=== PATIENT | female | born 1940 | race Caucasian/White ===

== ENCOUNTER 2017-08-08 09:42 | Inpatient (IN) ==
--- NOTE | 2017-08-08 10:11 | EKG Report ---
Stationary ECG Study [facility] ER Test Date: 08/08/2017 10:09:51 AM Pat Name: TONY MOYA Department: Room: Gender: F Home Care Scheduler: : 1940 Requested by: Abhay Cheney Order Number: [id number] Reading MD: BRYCE HUMPHRIES Intervals [place] Rate: 80 P: 51 IN: 144 QRS: 17 QRSD: 129 T: 49 QT: 396 QTc: 432 Interpretive Statements SINUS RHYTHM INDETERMINATE AXIS RIGHT BUNDLE BRANCH BLOCK Electronically Signed On 08-09-17 18:28:11 CDT by BRYCE HUMPHRIES [email or web address]
--- NOTE | 2017-08-08 10:26 | CT Report ---
CT brain Indication: Syncope Comparison: None available Technique: Axial CT imaging of the brain is performed without contrast with 3 mm increments. Findings: No evidence of hemorrhage, mass mass effect midline shift or acute infarct seen. There is moderate diffuse cerebral atrophy. There are areas of decreased density seen within the white matter likely related to chronic microvascular changes. Otherwise the brain parenchyma attenuation and differentiation appears within normal limits. The ventricles and cisterns are normal in caliber. No cranial or skull base abnormality is identified. Impression: No evidence of acute infarct or acute process demonstrated. This CT exam was performed using one or more the following dose reduction techniques: Automated exposure control, adjustment of the MA and/or KV according to patient size, or use of iterative reconstruction technique. PROCEDURE INTERPRETED AT [facility] DEPARTMENT OF RADIOLOGY Final Report Signed by: Dr. Chaitanya Lemus
--- NOTE | 2017-08-08 10:48 | XRay Report ---
XR lumbar spine AP/LAT Indication: Back pain, falling injury Comparison: None available Findings: No fracture is seen. Vertebral body heights and alignment are normal. There is loss of disc space and degenerative change of mild to moderate at L2-3 and L4-5 and mild remaining levels. Moderate amount of facet joint degenerative changes are present in the lower lumbar spine. Impression: No evidence of acute injury demonstrated PROCEDURE INTERPRETED AT [facility] DEPARTMENT OF RADIOLOGY Final Report Signed by: Dr. Chaitanya Lmeus
[2017-08-08 10:59] LABS: Basophils # 0.1 10*3/uL (0.0-0.2); Basophils % 0.4 % (0.0-0.8); Eosinophils # 0.1 10*3/uL (0.0-0.87); Eosinophils % 0.3 % (0.00-10.9); Hematocrit 45.4 VOL% (35.7-47.0); Hemoglobin 15.5 GM/DL (12.0-16.0); Immature Granulocytes % 1.3 %; Immature Granulocytes Absolute 0.22 #; Lymphocytes # 1.6 10*3/uL (1.4-4.0); Lymphocytes % 9.4 % (21.3-54.2); Mean Corpuscular HGB Conc 34.1 GM/DL (32-36); Mean Corpuscular Hemoglobin 31 PG (27-34); Mean Corpuscular Volume 90.1 FL (87-102); Mean Platelet Volume 10.4 FL (9.6-12.0); Monocytes % 5.6 % (1.7-12.7); Platelet Count 235 T/CUMM (130-400); Red Blood Count 5.04 MC/CUMM (3.8-5.5); Red Cell Distribution Width 13.9 % (9.3-17.3); White Blood Count 16.8 T/CUMM (4-12)
[2017-08-08 11:27] LABS: Albumin 3.5 G/DL (3.4-5.0); Bilirubin,Total 0.6 MG/DL (0.2-1.0); Calcium 9.6 MG/DL (8.5-10.1); Osmolality,Calculated 283.4 MOS/KG (273-304); Potassium 4.3 MMOL/L (3.5-5.1); Troponin I Only 0.031 NG/ML (0.00-0.045)
[2017-08-08 11:31] LABS: Apearance,Urine Slightly Hazy (Clear); Bacteria,Urine Many /HPF (Few); Bilirubin,Urine Negative (Negative); Blood, Urine Moderate mg/dL (Negative); Glucose,Urine (UA) Negative (Negative); Hyaline Casts,Urine 2 /LPF (0-3); Ketones,Urine 5 mg/dL (Negative); Mucus,Urine Occasional /LPF (Occasional); Nitrite,Urine Positive (Negative); Protein,Urine 30 MG/DL; RBC,Urine 25 /HPF (0-4); Urine Color Yellow (Yellow); Urine Specific Gravity 1.016 (1.001-1.035); Urine Urobilinogen < 2.0 EU/DL (0.2-1.0); WBC,Urine 41 /HPF (0-6)
[2017-08-08 11:33] LABS: Free T4 (Free Thyroxine) 1.25 NG/DL (0.76-1.46); Thyroid Stimulating Hormone 1.47 uIU/ml (0.358-3.74)
--- NOTE | 2017-08-08 12:42 | CT Report ---
CT chest pulmonary embolism Indication: Syncope Comparison: None available Technique: Axial CT imaging of the chest is performed with intravenous contrast. Contrast dose is 80 cc of Omnipaque 350. Findings: No thrombus or other abnormality is identified in the pulmonary arteries or veins. The pulmonary vessel caliber is within normal limits. There is small amount of aorta and coronary artery calcification. There is large amount of calcification in the mitral valve heart, mediastinum and great vessels appear within normal limits. Lung parenchyma shows no evidence of airspace disease or abnormal density. No effusion or pneumothorax is present. Gallbladder is been removed. Impression: No evidence of pulmonary thromboembolism or other acute process demonstrated. This CT exam was performed using one or more the following dose reduction techniques: Automated exposure control, adjustment of the MA and/or KV according to patient size, or use of iterative reconstruction technique. PROCEDURE INTERPRETED AT [facility] DEPARTMENT OF RADIOLOGY Final Report Signed by: Dr. Chaitanya Lemus
[2017-08-08] MEDS ORDERED: ACETAMINOPHEN 325 MG TABLET PO ONE (13:18)
[2017-08-08] MEDS ORDERED: ACETAMINOPHEN 325 MG TABLET ONE (13:19)
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
[2017-08-08] MEDS ORDERED: ONDANSETRON 4 MG/2 ML VIAL IV STA (14:04)
[2017-08-08] MEDS ORDERED: ONDANSETRON 4 MG/2 ML VIAL ONE (14:05)
[2017-08-08] MEDS ORDERED: ceFAZolin 1,000 MG VIAL ONE ×2 (14:44→15:19)
[2017-08-08] MEDS ORDERED: LIDOCAINE 1% 20 ML VIAL ONE ×2 (14:44→14:45)
[2017-08-08] MEDS ORDERED: HEPARIN/NACL 0.9% 2 UNITS/ML 500 ML IV ONE (14:44)
[2017-08-08] MEDS ORDERED: MIDAZOLAM 2 MG/2 ML VIAL ONE ×4 (14:46→16:18)
[2017-08-08] MEDS ORDERED: fentaNYL 100 MCG/2 ML VIAL ONE (14:47)
--- NOTE | 2017-08-08 14:54 | Event Note ---
After completion of the exam and generation of the orders the patient while under observation in the emergency room demonstrated high-grade AV block with substantial ventricular pause. Cardiology is aware
[2017-08-08] MEDS ORDERED: ENOXAPARIN 40 MG/0.4 ML SYRINGE SUBCUT SCH (15:00)
[2017-08-08] MEDS ORDERED: DIAZEPAM 5 MG TABLET PO ONE (15:10)
[2017-08-08] MEDS ORDERED: diphenhydrAMINE CAP 25 MG CAPSULE PO ONE (15:10)
[2017-08-08] MEDS ORDERED: ceFAZolin 1,000 MG VIAL IRRIG ONE (15:10)
--- NOTE | 2017-08-08 15:19 | Cardiology Consult Note ---
Albaro Pope Vanessa, RN, am scribing for, and in the presence of, Cindy Rodríguez DO 15 :17. Assessment and Plan - Time spent with patient Time spent with patient: Greater than 30 minutes (Date of assessment, planning, documentation, medication review) (1) Complete AV block Status: Acute Assessment and plan: While in ER being evaluated for recurrent syncope, quality assurance monitor final capture 6- 7 second episode of third-degree block before returning to sinus rhythm. With this, she experiences dizziness, lightheadedness, syncope, and is having frequent falls. She will be taken for dual-chamber pacemaker implant this afternoon. Given her increasing frequency of falls I do not think we should wait for her urine to clear. She has escalating frequency of syncope over the last 5-1/2 weeks. Current Visit: Yes (2) Syncope and collapse Status: Acute Assessment and plan: Episodes of syncope and collapse over the past 5 weeks which are becoming more frequent in the last week or so. This is most likely related to complete heart block. Current Visit: Yes (3) Thyroid disorder Status: Chronic Assessment and plan: TSH 1.470. Free T4 1.25. Continue thyroid supplement. 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 Current Visit: Yes (4) UTI (urinary tract infection) Status: Acute Assessment and plan: She has leukocytosis she is afebrile and has an abnormal urine with leukocyte esterase positive. Will cover for gram-negative rods and broad-spectrum antibiotics in addition to routine antibiotics for the procedure. Current Visit: Yes History of Present Illness - Data of Consult Patient: new to practice (Has an appt scheduled with Dr. Ramon on 08/13 for eval of syncope) Consult date: 08/08/17 Requesting Physician: Grant Hammond - Consult Narrative Reason for consult: Complete AV block History of present illness: SQUILGEER: DR. RAMON Patient is being seen and examined in ER #[id number]. Ms. Jason, 77-year-old WF, PMHx thyroid disorder, GERD, and anxiety. She is a lifetime non-smoker. Positive family history for father who after AL in his 70s denies past history of CAD, hypertension, or significant medical history. She has never had formal cardiac evaluation, but she has an appointment to see Dr. Ramon on Friday, August 13, for evaluation due to recent syncopal episodes. Presented to [facility] earlier this morning with complaints of frequent recurrent syncopal episodes over the past 5 weeks. These episodes happen while at rest and while ambulating. Over the past week, she reports that they have increased in frequency. This morning at home, she was walking out of her kitchen, had sudden onset of lightheadedness and dizziness and syncope, causing a fall. No trauma to head, but she did report headache. No chest pain, dyspnea associated with this. No exertional anginal complaint. CT of the head without acute process. Elevated d-dimer 17.2. Chest CT per PE protocol negative for evidence of PE. Prior to transfer to telemetry for further observation and treatment of syncope, patient was observed to have a 6-7 second episode of third degree AV block before returning to sinus rhythm with pulse 80s. Complete block did reproduce symptoms-- dizziness, lightheadedness, presyncope. BP 150/70. Lab work reveals elevated WBC 16,800 with UA positive for nitrate and moderate leukocytosis. Ideally we would treat the patient with antibiotics for a few days and have clearance of her urinary tract infection however she has had syncope now that is escalating in frequency over the last 5-1/2 weeks. May have even occurred at rest. I think given the severity of her symptoms and the potential life-threatening etiology of these falls we should proceed. I will give her antibiotics to cover gram negatives in addition to the routine antibiotics and the chapin- procedure time. Patient will be taken to cardiac petroleum refinery laborer today for pacemaker implantation. Procedure, risks, benefits, alternatives have been discussed with patient. Also discussed with the patient's sister who is a nurse and her daughter in the waiting area. Questions answered and all understand the significance of the tracings that I showed them. Patient and family willing to proceed. We specifically discussed the risk of infection in this setting. She does not have fever and she has not had chills hopefully this is a simple uncomplicated urinary tract infection. CC: Grant Hammond MD - Home Medications and Allergies Home Medications: Home Medications Medication Instructions Recorded Confirmed Type Buspirone HCl 15 mg PO BID 08/08/17 08/08/17 History Levothyroxine Tab [Synthroid Tab] 137 mcg PO DAILY@0700 08/08/17 08/08/17 History Pantoprazole Tab [Protonix Tab] 40 mg PO BEDTIME 08/08/17 08/08/17 History Allergies/Adverse Reactions: Allergies Allergy/AdvReac Type Severity Reaction Status Date / Time No Known Allergies Allergy Verified 08/08/17 10:21 - Constitutional Constitutional: Present: frequent falls, weakness. Absent: anorexia, chills, fever(s), increased appetite, weight gain, weight loss - EENT Eyes: Absent: blurry vision, loss of vision Ears: Absent: decreased hearing Nose, mouth and throat: Absent: dysphagia, epistaxis, nasal congestion, neck pain, sinus pressure - Cardiovascular Cardiovascular: Present: dyspnea on exertion, lightheadedness. Absent: chest pain at rest, chest pain with activity, dyspnea, edema, radiating jaw, neck or arm pain, orthopnea, palpitations, PND - Respiratory Respiratory: Present: dyspnea on exertion. Absent: cough, dyspnea, change in phlegm color - Gastrointestinal Gastrointestinal: Absent: abdominal pain, bloating, constipation, diarrhea, early satiety, heartburn, melena, nausea, vomiting, jaundice - Genitourinary Genitourinary: Present: other (She denies any genitourinary complaints). Absent : dysuria, flank pain, hematuria - Musculoskeletal Musculoskeletal: Absent: arthralgias - Neurological Neurological: Present: abnormal gait, frequent falls, syncope. Absent: abnormal speech, confusion, tremor(s) - Psychiatric Psychiatric: Present: anxiety. Absent: confusion, depression - Endocrine Endocrine: Absent: cold intolerance, heat intolerance - Hematologic/Lymphatic Hematologic/Lymphatic: Absent: easy bleeding, easy bruising Medical,Surgical,& Family Hx - Medical History Cardio: History of: Cardiac Dysrhythmia (She occasionally notices her heart fluttering and has a pending cardiac off) No history of: CHF, CAD, Hypertension, AL Psychological: History of: Anxiety Disorders Endocrine: History of: Thyroid Disorder (Chronic stable thyroid replacement) No history of: Diabetes Mellitus (IDDM), Diabetes Mellitus (NIDDM), Dyslipidemia Respiratory: No history of: Bronchitis, COPD, Obstructive Sleep Apnea, Pulmonary Hypertension Genitourinary: No history of: Kidney Stones, Problems Gastrointestinal: History of: GERD No history of: Gastrointestinal Bleed, Hepatitis Musculoskeletal: History of: Musculoskeletal Problems (She is largely confined to a mobile scooter system) Hematology: No history of: Anemia, Blood Transfusion Reaction Other: No history of: Cancer, HIV - Surgical History Cardiac Surgeries: Patient Denies: Femoral-Popliteal Bypass Graft, Cardiac Catheterization Abdominal Surgeries: Surgical HX of: Cholecystectomy Reproductive Surgeries: Surgical HX of;: Hysterectomy - Family History Family History: Reports;: Family Heart Disease (AL father) - Social History Smoking Status: Never smoker Frequency of Alcohol Use: None Type of Drug Use: None Physical Examination Vital Signs Temp Pulse Resp BP Pulse Ox 96.5 F L 79 13 146/93 98 08/08/17 09:48 08/08/17 09:48 08/08/17 09:48 08/08/17 09:48 08/08/17 09:48 General: Present: No Apparent Distress, Other (Morbidly obese) HEENT: Present: PERRL, Normocephaly, Mucus Membranes Moist. Absent: Pallor, Oral Lesions Neck: Present: Supple Neck, Midline Trachea, No JVD/HJR, No Bruit Cardiac: Present: Reg Rate and Rhythm, S1/S2, Systolic Murmur (Aortic sclerosis , she also has a murmur of tricuspid regurgitation) Lungs: Present: Normal Exam, Clear Ascult./Percussion, No Wheeze, Rales, Rhonchi. Absent: Oxygen Neuro: Present: Grossly Intact. Absent: Tingling, Weakness, Resting Tremor Abdomen: Present: Soft, Active Bowel Sounds, No Masses, No Pulsations/Bruits, Other (Obese). Absent: Ascites, Tender, Firm, Distended Skin: Present: Clear, Other (Cool, dry). Absent: Rash, Suspicious Lesions Musculoskeletal: Present: No Fluid Collection Extremities: Present: No Clubbing, No Cyanosis, No Edema, Normal Upper Extr. Pulses (3+ bilaterally), Normal Lower Extr. Pulses (3+ bilateral), Capillary Refill (Normal). Absent: Petechiae Result/EKG - Labs CBC & BMP: 08/08/17 10:04 08/08/17 10:04 Lab Results: I have reviewed the past 24 hour labs Labs: Laboratory Results - last 24 hr 08/08/17 08/08/17 08/08/17 10:04 10:04 10:04 WBC 16.8 H RBC 5.04 Hgb 15.5 Hct 45.4 MCV 90.1 MCH 31 MCHC 34.1 RDW 13.9 Plt Count 235 MPV 10.4 Neut % (Auto) 83.0 H Lymph % (Auto) 9.4 L [place] % (Auto) 5.6 Eos % (Auto) 0.3 Baso % (Auto) 0.4 Neut # (Auto) 14.0 H Lymph # (Auto) 1.6 [place] # (Auto) 1.0 H Eos # (Auto) 0.1 Baso # (Auto) 0.1 Immature Gran % 1.3 Nucleated RBC % 0.0 Immature Gran # 0.22 Nucleated RBCs # 0.00 Immature Plt Fraction 0.0 D-Dimer, Quantitative Sodium 140 Potassium 4.3 Chloride 106 Carbon Dioxide 28 Anion Gap 10.3 BUN 14 Creatinine 0.80 GFR Calculation 94 BUN/Creatinine Ratio 17.00 Glucose 169 H Calculated Osmolality 283.4 Calcium 9.6 Total Bilirubin 0.60 AST 40 H ALT 36 Alkaline Phosphatase 137 H Troponin I 0.031 B-Natriuretic Peptide 43 Total Protein 7.0 Albumin 3.5 Globulin 3.5 Albumin/Globulin Ratio 1.0 L Free T4 TSH 3rd Generation Urine Color Urine Appearance Urine pH Ur Specific [place] Urine Protein Urine Glucose (UA) Urine Ketones Urine Blood Urine Nitrate Urine Bilirubin Urine Urobilinogen Urine Leukocytes Urine RBC Urine WBC Urine WBC Clumps Urine Bacteria Hyaline Casts Urine Mucus Ur Culture Indicated? 08/08/17 08/08/17 08/08/17 10:04 10:04 11:09 WBC RBC Hgb Hct MCV MCH MCHC RDW Plt Count MPV Neut % (Auto) Lymph % (Auto) [place] % (Auto) Eos % (Auto) Baso % (Auto) Neut # (Auto) Lymph # (Auto) [place] # (Auto) Eos # (Auto) Baso # (Auto) Immature Gran % Nucleated RBC % Immature Gran # Nucleated RBCs # Immature Plt Fraction D-Dimer, Quantitative 17.2 Sodium Potassium Chloride Carbon Dioxide Anion Gap BUN Creatinine GFR Calculation BUN/Creatinine Ratio Glucose Calculated Osmolality Calcium Total Bilirubin AST ALT Alkaline Phosphatase Troponin I B-Natriuretic Peptide Total Protein Albumin Globulin Albumin/Globulin Ratio Free T4 1.25 TSH 3rd Generation 1.470 Urine Color Yellow Urine Appearance Slightly hazy Urine pH 5.0 Ur Specific [place] 1.016 Urine Protein 30 Urine Glucose (UA) Negative Urine Ketones 5 Urine Blood Moderate Urine Nitrate Positive H Urine Bilirubin Negative Urine Urobilinogen < 2.0 H Urine Leukocytes Moderate H Urine RBC 25 Urine WBC 41 Urine WBC Clumps Few Urine Bacteria Many Hyaline Casts 2 Urine Mucus Occasional Ur Culture Indicated? Results to follow - Diagnostic Findings Procedure: CT - chest: image reviewed by me, report reviewed by me, CT: image reviewed by me, report reviewed by me - EKG EKG results: interpreted by me, no acute changes EKG shows: sinus rhythm (With transient third-degree AVB -strips are in the chart) Anne Pope Shea, DO, personally performed the services described in this documentation, ascribed by Cyndy Irvin RN in my presence, and it is both accurate and complete [id number] .
--- NOTE | 2017-08-08 15:28 | History and Physical Update ---
Sedation H&P Update - History and Physical H&P was reviewed, the patient examined and there: are no changes in the patients condition since last H&P was completed. - Dictation Physical: refer to scanned H&P - Physical Exam Mental Status: alert and oriented Heart: regular rate and rhythm Lung: clear to auscultation Abdomen: within normal limits Vitals: within normal limits - Sedation Plan for Sedation: moderate Patient Consent: Procedure disscussed with patient and patinet has consented., Risks and benefits were discussed with patient,including infection,, bleeding, injury to surrounding structures, seizure, temporary nerve, Patient understands and accepts potential risks/benefits and agrees to, proceed. ASA Class: II Airway Assessment: Class III: Soft palate, base of uvula visible
[2017-08-08] MEDS ORDERED: LEVOFLOXACIN INJ 500 MG in PREMIX 1 EACH IV ONE (15:30)
[2017-08-08] MEDS ORDERED: SODIUM CHLORIDE 0.9% 1,000 ML IV SCH (15:30)
[2017-08-08] MEDS ORDERED: TISSUE ADHESIVE 1 EACH APPLICATOR TOP ONE (15:44)
--- NOTE | 2017-08-08 17:09 | Cardiology Operative Report ---
Date of Procedure:: 08/08/17 Pre-op diagnosis: Complete heart block of nonreversible calls and syncope Post-op diagnosis: same Procedure: After signed informed consent was taken from the patient and antibiotics given timeout recorded in the patient was prepped and draped in a: 1% lidocaine was infiltrated in the skin and subcutaneous tissue overlying the left subclavian vein. A venogram was performed. Seldinger technique was utilized with a micropuncture needle to obtain access to the left subclavian vein. The micropuncture wire then through the micropuncture sheath was upsized to an 035 J -wire. Additional lidocaine was given and a #11 blade was used to make the pocket. Electrocautery was used for hemostasis and dissection to the pectoralis fascial. Once the pectoralis fascial was reached blunt dissection inferiorly was used to make a pocket. Anabolic sponge was placed in the pocket. At this time blunt dissection superiorly to pull the 035 J-wire back into the pocket was performed. Now a second access more laterally was obtained with Seldinger technique from the pocket utilizing the micropuncture wire sheath and 035 J-wire as described above. At this time a 7 Greenlandic peel-away sheath was placed over the more medial wire and the ventricular lead was advanced through this sheath into the apex of the right ventricle and actively fixed. The lead was interrogated and tested for 10 V output to ensure no diaphragmatic stimulation. Slack was good and the sheath was peeled away. At this time an 2-0 Ethibond was used to secure the lead to the pectoralis fascial over the anchor sleeve. The stylette was removed and slight was demonstrated to be good. At this time attention was turned to the atrial lead. A 7 Greenlandic sheath was placed over the remaining 035 J-wire and the atrial lead was advanced into the inferior vena cava straight stylet was exchanged for a J stylette and the right reach with a J stylette it was actively fixed the stylette was removed. The lead was connected for interrogation. Numbers were all acceptable there was no diaphragmatic stimulation with 10 V. Sheath was peeled away the lead was then sewn to the pectoralis fascial over the suture sleeve in the same fashion. Finally a pursestring suture was placed around both leads. There was a bleeder deep in the pocket and a 2-0 absorbable suture was used to ligate this bleeder successfully. The anabolic sponge that had been previously placed in the pocket was removed. The rocket was flushed with antibiotics solution ensure hemostasis. The ventricular and atrial leads were then attached to the generator device as the serial numbers were called to the [employer] employment representative. Sponge and instrument count were demonstrated to be correct. AV sequential pacing was noted on the monitor the and at the device was placed in the pocket and sewn to the pectoralis fascial with 2-0 Ethibond. The sponge and instrument count were again verified to be correct the deep tissue layers were closed with 3-0 Vicryl followed by running 4-0 Vicryl in a subcuticular stitch. Dermabond was applied followed by a row of Steri-Strips and Mepilex dressing. The patient awakened from conscious sedation administered during the case without difficulty. Total IV conscious sedation: See the cath log. Implants: Device: MedOctamer advise MRI IPG [id number] Right Atrial lead: [employer]onic 5076-52 Serial number [id number] Impedance: 713 ohms P waves: 5.7 mV Threshold: 1.6 V Right Ventricular lead: [employer] 5076-58 Serial number [id number] Impedance 1071 ohms R waves 10.6 mV Threshold: 0.7 V Anesthesia: moderate conscious sedation Surgeon / Physician: Cindy Rodríguez Caustic Loader: none Estimated blood loss: none Specimens: none sent Condition: stable Disposition: floor
[2017-08-08] MEDS: busPIRone 15 MG TABLET PO SCH ×2 (17:53→20:35)
[2017-08-08] MEDS: ACETAMINOPHEN 325 MG TABLET PO PRN (18:34)
--- NOTE | 2017-08-08 19:16 | XRay Report ---
History is pacemaker placements The heart is mildly enlarged. Pacemaker is present No pneumothorax seen No consolidative infiltrate seen. Deeth shadows overlie the right apex Increased density of the left chest likely due to rotation and overlying soft tissues Impression: Mild cardiomegaly PROCEDURE INTERPRETED AT [facility] DEPARTMENT OF RADIOLOGY Final Report Signed by: Dr. Soheila Vergara
[2017-08-08] MEDS: PANTOPRAZOLE 40 MG TABLET PO SCH (20:35)
[2017-08-09 04:57] LABS: Basophils # 0.1 10*3/uL (0.0-0.2); Basophils % 0.5 % (0.0-0.8); Eosinophils # 0.1 10*3/uL (0.0-0.87); Eosinophils % 0.9 % (0.00-10.9); Hematocrit 41.3 VOL% (35.7-47.0); Immature Granulocytes % 0.9 %; Lymphocytes # 1.9 10*3/uL (1.4-4.0); Lymphocytes % 17.7 % (21.3-54.2); Mean Corpuscular HGB Conc 33.9 GM/DL (32-36); Mean Corpuscular Hemoglobin 31 PG (27-34); Mean Corpuscular Volume 90.8 FL (87-102); Mean Platelet Volume 10.9 FL (9.6-12.0); Monocytes # 0.9 10*3/uL (0.11-0.8); Monocytes % 8.8 % (1.7-12.7); Neutrophils # 7.5 10*3/uL (1.4-7.4); Neutrophils % 71.2 % (38.7-73.9); Platelet Count 210 T/CUMM (130-400); Red Blood Count 4.55 MC/CUMM (3.8-5.5); White Blood Count 10.6 T/CUMM (4-12)
[2017-08-09] MEDS: ACETAMINOPHEN 325 MG TABLET PO PRN ×2 (05:16→13:54)
[2017-08-09 05:26] LABS: Calcium 9.7 MG/DL (8.5-10.1); Osmolality,Calculated 280.5 MOS/KG (273-304); Potassium 4.4 MMOL/L (3.5-5.1)
--- NOTE | 2017-08-09 08:18 | EKG Report ---
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
[2017-08-09] MEDS: ONDANSETRON 4 MG/2 ML VIAL IV PRN ×2 (08:46→19:21)
[2017-08-09] MEDS: LEVOTHYROXINE 137 MCG TABLET PO SCH (08:50)
[2017-08-09] MEDS: LEVOFLOXACIN 500 MG TABLET PO SCH (08:51)
[2017-08-09] MEDS: busPIRone 15 MG TABLET PO SCH ×2 (08:51→20:54)
--- NOTE | 2017-08-09 10:40 | XRay Report ---
Chest, 2 views History is pacemaker placement Comparison 08/08/2017 The heart is mildly enlarged with pacemaker present. No pneumothorax seen Lung markings unchanged without consolidation. Impression: No interval change PROCEDURE INTERPRETED AT [facility] DEPARTMENT OF RADIOLOGY Final Report Signed by: Dr. Soheila Vergara
--- NOTE | 2017-08-09 11:31 | Hospitalist Progress Note ---
Assessment and Plan (1) Complete AV block Status: Acute Assessment and plan: Status post pacemaker implantation in stable rhythm. Current Visit: Yes (2) UTI (urinary tract infection) Status: Acute Assessment and plan: Continue IV antibiotic. Current Visit: Yes Qualifiers: Urinary tract infection type: acute cystitis Hospitalist: Subjective Interval history: Mrs. Jason was admitted to the hospital after a spell at home. The patient had syncope and fell. The patient complains of some right sided soreness and weakness following the spell. The patient was found to have arrhythmia and pacemaker was implanted. The patient has had no further spells since pacemaker implantation. Exam - Constitutional Vitals: Period Temp Pulse Resp BP Sys/Kiran Pulse Ox Last 24 Hr 96.7 F-98 F 72-88 16-22 150-228/69-111 92-100 Exam: Constitutional System: Mild distress. No tremulousness. Sitting up in chair without any angina or shortness of breath Head: Normocephalic, atraumatic. Ears, Nose and Throat System: No evidence of Otitis or Mastoiditis. No epistaxis or discharge Eyes System: Pupils equal, round, and reactive. Extraocular muscles intact. Neck: Supple, without adenopathy, No jugular venous distention. No thyromegaly , neck mass, or prior surgery apparent. Respiratory System: Chest clear to auscultation. Cardiovascular System: Heart with regular rate and rhythm. No murmur. Fresh dressing in place on the pacemaker site GI System: Abdomen soft, nontender. Normo active bowel sounds present. Results - Labs CBC & BMP: 08/09/17 04:16 08/09/17 04:16 Lab Results: I have reviewed the past 24 hour labs Quality Measures - VTE Contraindication to Pharmacological VTE Prophylaxis: High Risk of Bleeding
--- NOTE | 2017-08-09 11:39 | Cardiology Progress Note ---
Assessment and Plan (1) Complete AV block Status: Acute Assessment and plan: Status post dual-chamber pacemaker placement successfully. Continue shoulder immobilizer. Current Visit: Yes (2) Thyroid disorder Status: Chronic Assessment and plan: TSH 1.470. Free T4 1.25. Continue thyroid supplement. 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 Current Visit: Yes (3) UTI (urinary tract infection) Status: Acute Assessment and plan: She has leukocytosis has improved. She has been afebrile. No dysuria. I would continue antibiotics until an organism is identified. Current Visit: Yes Qualifiers: Urinary tract infection type: acute cystitis Cardiology - PN: Subj Interval history: Ms. Jason complains of pain in her low back and buttocks today after her fall yesterday. Her pacemaker interrogation was excellent this morning her chest x- ray shows no complications. She is wearing her arm sling. She states that she wishes to go to swing bed so that she can get ambulatory again. Exam (Progress Note) - Constitutional Vitals: Period Temp Pulse Resp BP Sys/Kiran Pulse Ox Last 24 Hr 96.7 F-98 F 72-88 16-22 150-228/69-111 92-98 General appearance: morbidly obese - Eye Eye exam: Present: EOMI Pupils: Present: JUJU - Neck Neck exam: Present: normal inspection - Respiratory Respiratory exam: Present: clear to auscultation bilaterally - Cardiovascular Cardiovascular exam: Present: regular rate and rhythm - GI/Abdominal GI/Abdominal exam: Present: normal bowel sounds - Neurological Exam Neurological exam: Present: alert, oriented X3 - Skin Skin exam: Present: normal color, warm Result/EKG - Labs CBC & BMP: 08/09/17 04:16 08/09/17 04:16 Labs: Laboratory Results - last 24 hr 08/08/17 08/08/17 08/09/17 10:04 15:00 04:16 WBC 10.6 D RBC 4.55 Hgb 14.0 Hct 41.3 MCV 90.8 MCH 31 MCHC 33.9 RDW 14.0 Plt Count 210 MPV 10.9 Neut % (Auto) 71.2 Lymph % (Auto) 17.7 L [place] % (Auto) 8.8 Eos % (Auto) 0.9 Baso % (Auto) 0.5 Neut # (Auto) 7.5 H Lymph # (Auto) 1.9 [place] # (Auto) 0.9 H Eos # (Auto) 0.1 Baso # (Auto) 0.1 Immature Gran % 0.9 Nucleated RBC % 0.0 Immature Gran # 0.10 Nucleated RBCs # 0.00 Immature Plt Fraction 0.0 Sodium Potassium Chloride Carbon Dioxide Anion Gap BUN Creatinine GFR Calculation BUN/Creatinine Ratio Glucose POC Glucose 147 H Calculated Osmolality Calcium B-Natriuretic Peptide 43 08/09/17 04:16 WBC RBC Hgb Hct MCV MCH MCHC RDW Plt Count MPV Neut % (Auto) Lymph % (Auto) [place] % (Auto) Eos % (Auto) Baso % (Auto) Neut # (Auto) Lymph # (Auto) [place] # (Auto) Eos # (Auto) Baso # (Auto) Immature Gran % Nucleated RBC % Immature Gran # Nucleated RBCs # Immature Plt Fraction Sodium 139 Potassium 4.4 Chloride 105 Carbon Dioxide 29 Anion Gap 9.4 BUN 12 Creatinine 0.70 GFR Calculation 112 BUN/Creatinine Ratio 17.00 Glucose 173 H POC Glucose Calculated Osmolality 280.5 Calcium 9.7 B-Natriuretic Peptide - EKG EKG results: interpreted by me, WNL Quality Measures - VTE Contraindication to Pharmacological VTE Prophylaxis: High Risk of Bleeding
[2017-08-09] MEDS: PANTOPRAZOLE 40 MG TABLET PO SCH (20:55)
[2017-08-10 04:30] LABS: Basophils # 0.1 10*3/uL (0.0-0.2); Basophils % 0.5 % (0.0-0.8); Eosinophils # 0.1 10*3/uL (0.0-0.87); Eosinophils % 1.2 % (0.00-10.9); Hematocrit 41.2 VOL% (35.7-47.0); Hemoglobin 14.1 GM/DL (12.0-16.0); Immature Granulocytes % 1.3 %; Immature Granulocytes Absolute 0.14 #; Lymphocytes % 18.8 % (21.3-54.2); Mean Corpuscular HGB Conc 34.2 GM/DL (32-36); Mean Corpuscular Hemoglobin 31 PG (27-34); Mean Corpuscular Volume 89.8 FL (87-102); Monocytes # 0.9 10*3/uL (0.11-0.8); Monocytes % 8.1 % (1.7-12.7); Neutrophils # 7.3 10*3/uL (1.4-7.4); Neutrophils % 70.1 % (38.7-73.9); Platelet Count 200 T/CUMM (130-400); Red Blood Count 4.59 MC/CUMM (3.8-5.5); White Blood Count 10.5 T/CUMM (4-12)
[2017-08-10 05:04] LABS: Magnesium 1.7 MG/DL (1.8-2.4); Osmolality,Calculated 277.7 MOS/KG (273-304); Potassium 4.5 MMOL/L (3.5-5.1)
[2017-08-10] MEDS: LEVOTHYROXINE 137 MCG TABLET PO SCH (06:56)
--- NOTE | 2017-08-10 07:43 | Cardiology Progress Note ---
Assessment and Plan (1) Complete AV block Status: Acute Assessment and plan: Status post dual-chamber pacemaker placement successfully. Continue shoulder immobilizer. Current Visit: Yes (2) Thyroid disorder Status: Chronic Assessment and plan: TSH 1.470. Free T4 1.25. Continue thyroid supplement. 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 Current Visit: Yes (3) UTI (urinary tract infection) Status: Acute Assessment and plan: She has leukocytosis has improved. She has been afebrile. No dysuria. I would continue antibiotics until an organism is identified. Appears to be gram negative rods and I suspect this is most likely E. Coli. Recheck UA tomorrow to see if it has cleared. Current Visit: Yes Qualifiers: Urinary tract infection type: acute cystitis (4) Hypertension Status: Acute Current Visit: Yes Qualifiers: Hypertension type: essential hypertension Qualified Code(s): I10 - Essential (primary) hypertension Cardiology - PN: Subj Interval history: The patient still complains of nausea whenever she gets up to get around. She also complains of buttock pain. She states that she has felt several times like she is going to have another one of those spells but has not had any spells. I reviewed her telemetry I do not see any episodes of pacing. Anticipate transfer to swing bed at some point. Her blood pressure has been elevated and I will increase her medications to treat her hypertension. Her systolic blood pressures consistently been greater than 160. Exam (Progress Note) - Constitutional Vitals: Period Temp Pulse Resp BP Sys/Kiran Pulse Ox Last 24 Hr 97 F-98.7 F 72-92 18-20 161-182/71-128 94-96 General appearance: morbidly obese - Head Head exam: Present: normal inspection - Eye Eye exam: Present: EOMI Pupils: Present: JUJU - ENT ENT exam: Present: normal exam - Respiratory Respiratory exam: Present: clear to auscultation bilaterally - Cardiovascular Cardiovascular exam: Present: regular rate and rhythm - GI/Abdominal GI/Abdominal exam: Present: normal bowel sounds Result/EKG - Labs CBC & BMP: 08/10/17 03:25 08/10/17 03:25 Labs: Laboratory Results - last 24 hr 08/10/17 08/10/17 03:25 03:25 WBC 10.5 RBC 4.59 Hgb 14.1 Hct 41.2 MCV 89.8 MCH 31 MCHC 34.2 RDW 14.0 Plt Count 200 MPV 11.0 Neut % (Auto) 70.1 Lymph % (Auto) 18.8 L [place] % (Auto) 8.1 Eos % (Auto) 1.2 Baso % (Auto) 0.5 Neut # (Auto) 7.3 Lymph # (Auto) 2.0 [place] # (Auto) 0.9 H Eos # (Auto) 0.1 Baso # (Auto) 0.1 Immature Gran % 1.3 Nucleated RBC % 0.0 Immature Gran # 0.14 Nucleated RBCs # 0.00 Immature Plt Fraction 0.0 Sodium 138 Potassium 4.5 Chloride 103 Carbon Dioxide 29 Anion Gap 10.5 BUN 9 Creatinine 0.70 GFR Calculation 112 BUN/Creatinine Ratio 12.00 Glucose 177 H Calculated Osmolality 277.7 Calcium 10.0 Magnesium 1.7 L Quality Measures - VTE Contraindication to Pharmacological VTE Prophylaxis: High Risk of Bleeding
[2017-08-10] MEDS: DOCUSATE SODIUM 100 MG CAPSULE PO PRN (09:07)
[2017-08-10] MEDS: LEVOFLOXACIN 500 MG TABLET PO SCH (09:07)
[2017-08-10] MEDS: ACETAMINOPHEN 325 MG TABLET PO PRN ×2 (09:08→21:51)
[2017-08-10] MEDS: busPIRone 15 MG TABLET PO SCH ×2 (09:08→21:51)
[2017-08-10] MEDS: CHLORTHALIDONE 25 MG TABLET PO SCH (09:08)
[2017-08-10] MEDS: amLODIPine 5 MG TABLET PO SCH (09:08)
--- NOTE | 2017-08-10 10:50 | Hospitalist Progress Note ---
Assessment and Plan (1) Complete AV block Status: Acute Assessment and plan: Status post pacemaker implantation in stable rhythm. The patient has started physical therapy and would be a good candidate for swing bed to improve her independence prior to discharge home. Current Visit: Yes (2) UTI (urinary tract infection) Status: Acute Assessment and plan: Continue oral Levaquin and await culture identification. Current Visit: Yes Qualifiers: Urinary tract infection type: acute cystitis Hospitalist: Subjective Interval history: The patient is resting quietly in chair. The patient does not complain of shortness of breath or angina. She does complain of buttocks pain where she fell after the syncopal episode. The patient has begun physical therapy. Exam - Constitutional Vitals: Period Temp Pulse Resp BP Sys/Kiran Pulse Ox Last 24 Hr 97 F-98.7 F 72-92 18-20 144-182/71-128 94-96 Exam: Constitutional System: Mild distress. No tremulousness. Sitting up in chair without any angina or shortness of breath Head: Normocephalic, atraumatic. Ears, Nose and Throat System: No evidence of Otitis or Mastoiditis. No epistaxis or discharge Eyes System: Pupils equal, round, and reactive. Extraocular muscles intact. Neck: Supple, without adenopathy, No jugular venous distention. No thyromegaly , neck mass, or prior surgery apparent. Respiratory System: Chest clear to auscultation. Cardiovascular System: Heart with regular rate and rhythm. No murmur. Fresh dressing in place on the pacemaker site GI System: Abdomen soft, nontender. Normo active bowel sounds present. Results - Labs CBC & BMP: 08/10/17 03:25 08/10/17 03:25 Lab Results: I have reviewed the past 24 hour labs Quality Measures - VTE Contraindication to Pharmacological VTE Prophylaxis: High Risk of Bleeding
[2017-08-10] MEDS ORDERED: MAGNESIUM SULF RIDER 2 GM in PREMIX 1 EACH IV ONE (10:52)
[2017-08-10] MEDS: PANTOPRAZOLE 40 MG TABLET PO SCH (21:52)
[2017-08-11 05:47] LABS: Magnesium 1.9 MG/DL (1.8-2.4); Osmolality,Calculated 277.7 MOS/KG (273-304); Potassium 4.6 MMOL/L (3.5-5.1)
[2017-08-11] MEDS: amLODIPine 5 MG TABLET PO SCH (08:52)
[2017-08-11] MEDS: LEVOTHYROXINE 137 MCG TABLET PO SCH (08:52)
[2017-08-11] MEDS: CHLORTHALIDONE 25 MG TABLET PO SCH (08:52)
[2017-08-11] MEDS: LEVOFLOXACIN 500 MG TABLET PO SCH (08:52)
[2017-08-11] MEDS: busPIRone 15 MG TABLET PO SCH ×4 (08:53→22:00)
[2017-08-11] MEDS: ACETAMINOPHEN 325 MG TABLET PO PRN (08:55)
[2017-08-11] MEDS ORDERED: MAGNESIUM HYDROXIDE SUSP 30 ML UDCUP PO ONE (11:02)
[2017-08-11] MEDS: METOPROLOL TARTRATE 25 MG TABLET PO SCH ×2 (13:01→20:16)
--- NOTE | 2017-08-11 15:04 | Hospitalist Progress Note ---
Assessment and Plan (1) Complete AV block Status: Resolved Assessment and plan: Status post pacemaker placement Current Visit: Yes (2) Thyroid disorder Status: Chronic Current Visit: Yes (3) UTI (urinary tract infection) Status: Acute Assessment and plan: E. coli UTI sensitive to Levaquin. Continue oral therapy. Current Visit: Yes Qualifiers: Urinary tract infection type: acute cystitis (4) Hypertension Status: Chronic Current Visit: Yes Qualifiers: Hypertension type: essential hypertension Qualified Code(s): I10 - Essential (primary) hypertension Hospitalist: Subjective Interval history: Patient seen and examined. No acute events overnight. Case discussed with nursing staff. Labs reviewed. Awaiting swing bed placement status post pacemaker placement. Exam - Constitutional Vitals: Period Temp Pulse Resp BP Sys/Kiran Pulse Ox Last 24 Hr 96.7 F-98.7 F 73-99 18-20 152-211/71-96 91-98 Exam: Constitutional System: No distress. No tremulousness. Left arm in sling Head: Normocephalic, atraumatic. Ears, Nose and Throat System: No pain or tenderness. No epistaxis or discharge Eyes System: Pupils equal, round, and reactive. Extraocular muscles intact. Neck: Supple, without adenopathy, No jugular venous distention. No thyromegaly, neck mass, or prior surgery apparent. Respiratory System: Chest clear to auscultation. Cardiovascular System: Heart with regular rate and rhythm. No murmur. GI System: Abdomen soft, nontender. Normo active bowel sounds present. Musculoskeletal System: limbs with no pedal edema. Full distal pulses. Normal capillary refill. Neurological System: No discernable sensory deficit. No aphasia Psychiatric System: Conversation is rational Results - Labs CBC & BMP: 08/10/17 03:25 08/11/17 04:23 Lab Results: I have reviewed the past 24 hour labs Quality Measures - VTE Contraindication to Pharmacological VTE Prophylaxis: High Risk of Bleeding
--- NOTE | 2017-08-11 18:25 | Cardiology Progress Note ---
Galen Pope Lesley, NP, am scribing for, and in the presence of, Edy Cornell MD 18:25. Cardiology - PN: Subj Interval history: TANKER DRIVER: DR. PATEL SUMMARY: Ms. Jason, 77-year-old WF, PMHx thyroid disorder, GERD, and anxiety. She is a lifetime non-smoker. She presented to [place] ED earlier this morning with complaints of frequent recurrent syncopal episodes over the past [address] of the head done without acute process. Chest CT per PE protocol negative for evidence of PE. Prior to transfer to telemetry for further observation and treatment of syncope, patient was observed to have a 6-7 second episode of third degree AV block before returning to sinus rhythm with pulse 80s. Complete block did reproduce symptoms--dizziness, lightheadedness, presyncope. BP 150/70. The patient was taken to labor arbitrator for permanent dual chamber pacemaker placement. She tolerated the procedure without complications. CXR confirmed PPM placement. Leukocystosis resolved, she continues antibiotics for UTI. 2016: Exam (Progress Note) - Constitutional Vitals: Period Temp Pulse Resp BP Sys/Kiran Pulse Ox Last 24 Hr 96.7 F-98.7 F 75-99 18-20 157-211/76-96 91-98 Result/EKG - Labs CBC & BMP: 08/10/17 03:25 08/11/17 04:23 Labs: Laboratory Results - last 24 hr 08/11/17 04:23 Sodium 138 Potassium 4.6 Chloride 102 Carbon Dioxide 28 Anion Gap 12.6 BUN 9 Creatinine 0.70 GFR Calculation 112 BUN/Creatinine Ratio 12.00 Glucose 166 H Calculated Osmolality 277.7 Calcium 10.0 Magnesium 1.9 Quality Measures - VTE Contraindication to Pharmacological VTE Prophylaxis: High Risk of Bleeding Kraig Pope John Timothy, MD, personally performed the services described in this documentation, ascribed by Doreen Aaron NP in my presence, and it is both accurate and complete [id number] .
--- NOTE | 2017-08-11 18:42 | Cardiology Progress Note ---
Albaro Pope Vanessa, RN, am scribing for, and in the presence of, Edy Cornell MD 18:42. Assessment and Plan - Time spent with patient Time spent with patient: Greater than 30 minutes (1) Complete AV block Status: Resolved Assessment and plan: While in ER being evaluated for recurrent syncope, front desk monitor captured 6- 7 second episode of symptomatic third-degree block before returning to sinus rhythm. Taken for dual chamber pacemaker implant the same afternoon, 08/08. Tele has been stable. Current Visit: Yes (2) Hypertension Status: Chronic Assessment and plan: Suboptimally controlled today. -Currently taking Norvasc 5 daily & Chlorthalidone 25 daily -Lopressor 25 BID added today Current Visit: Yes Qualifiers: Hypertension type: essential hypertension Qualified Code(s): I10 - Essential (primary) hypertension (3) UTI (urinary tract infection) Status: Acute Assessment and plan: Urine culture positive for E. coli. Patient is on appropriate IV antibiotic treatment per attending physician. Will have repeat UA today. Current Visit: Yes Qualifiers: Urinary tract infection type: acute cystitis (4) Thyroid disorder Status: Chronic Assessment and plan: Normal TSH this admit. Continue thyroid supplement. History positive for thyroid storm. Current Visit: Yes Cardiology - PN: Subj Interval history: SEARCH ENGINE OPTIMIZER: DR. PATEL (to establish care on 08/13) SUMMARY: Ms. Jason, 77 year old WF, PMHx thyroid disorder, GERD, anxiety. She is a lifetime non-smoker. Admitted to [facility] telemetry on 08/08 for evaluation of recurrent syncopal episodes which have been occurring for approximately 5 weeks. Elevated d-dimer with subsequent chest CT per PE protocol negative for pulmonary embolism. CT of head benign. While being monitored in ER, patient was observed to have a 6-7 second episode of third-degree AV block before returning spontaneously to sinus rhythm. This was symptomatic and reproduced her symptoms--dizziness, lightheadedness, presyncope. She also had UTI. Due to the severity of the symptoms and clinical presentation, it was elected to take her directly to [facility] for pacemaker implantation. Dual-chamber pacemaker implant on 08/[address] Rodríguez. Interrogation showed appropriate function. Patient has continued to complain of lower back pain and pain in buttocks area status post fall at home due to syncopal episode prior to presentation to ED. PT and OT consulted to evaluate and treat. 2016: No hemodynamic changes or acute findings overnight. She is awake, alert, and pleasant. Reports she continues to have some dizziness with ambulation, but she contributes this to discomfort she experiences with ambulation. No chest pain, dyspnea, syncope. Brief self sustained episode of SVT with HR 150s yesterday morning. Tele monitor shows sinus rhythm. Not pacing at this time. SBP 150-180 mmHg range. Labs reviewed. Electrolytes and renal function within acceptable range. She is being evaluated for transfer to swing bed hopefully in the next day or so. Patient personally interviewed and examined and chart reviewed. Reviewed this case with Cyndy Irvin RN. Evaluation exam and plan is as described and discussed. The patient stable for pacemaker and her pacemaker site remains stable. She has a urinary tract infection is being treated. Her biggest issue is weakness. With her obesity she has difficulty getting out of the bed and maintaining posture. She is being evaluated for possible swing bed placement. Exam (Progress Note) - Constitutional Vitals: Period Temp Pulse Resp BP Sys/Kiran Pulse Ox Last 24 Hr 96.7 F-98.7 F 73-99 18-20 152-211/71-96 91-98 Exam: General: Present: No Apparent Distress, Other (Morbidly obese) HEENT: Present: PERRL, Normocephaly, Mucus Membranes Moist. Absent: Pallor, Oral Lesions Neck: Present: Supple Neck, Midline Trachea, No JVD/HJR, No Bruit Cardiac: Present: Reg Rate and Rhythm, S1/S2, Systolic Murmur Lungs: Present: Normal Exam, Clear Ascult./Percussion, No Wheeze, Rales, Rhonchi. Not requiring supplemental oxygen. Chest: left chest pacemaker implant site with dry/intact dressing, minimal bruising, no hematoma Neuro: Present: Grossly Intact. Absent: Tingling, Weakness, Resting Tremor Abdomen: Present: Soft, Active Bowel Sounds, No Masses, No Pulsations/Bruits, Other (Obese). Absent: Ascites, Tender, Firm, Distended Skin: Present: Clear, Other (warm, dry, intact). Absent: Rash, Suspicious Lesions Musculoskeletal: Present: No Fluid Collection. Decreased range of motion Extremities: Present: No Clubbing, No Cyanosis, No Edema, Normal Upper Extr. Pulses (3+ bilaterally), Normal Lower Extr. Pulses (3+ bilateral), Capillary Refill (Normal). Absent: Petechiae. Other: left arm immobilized s/p pacemaker implant Result/EKG - Labs CBC & BMP: 08/10/17 03:25 08/11/17 04:23 Lab Results: I have reviewed the past 24 hour labs Labs: Laboratory Results - last 24 hr 08/11/17 04:23 Sodium 138 Potassium 4.6 Chloride 102 Carbon Dioxide 28 Anion Gap 12.6 BUN 9 Creatinine 0.70 GFR Calculation 112 BUN/Creatinine Ratio 12.00 Glucose 166 H Calculated Osmolality 277.7 Calcium 10.0 Magnesium 1.9 - Diagnostic Findings Procedure: Chest x-ray: image reviewed by me, report reviewed by me - EKG EKG results: interpreted by me, no acute changes EKG shows: sinus rhythm Quality Measures - VTE Contraindication to Pharmacological VTE Prophylaxis: High Risk of Bleeding Kraig Pope John Timothy, MD, personally performed the services described in this documentation, ascribed by Cyndy Irvin RN in my presence, and it is both accurate and complete [id number] .
[2017-08-11] MEDS: PANTOPRAZOLE 40 MG TABLET PO SCH (20:17)
[2017-08-11] MEDS: ZALEPLON 5 MG CAPSULE PO PRN (20:18)
[2017-08-11] MEDS: DOCUSATE SODIUM 100 MG CAPSULE PO PRN (22:00)
[2017-08-12 05:14] LABS: Basophils # 0.1 10*3/uL (0.0-0.2); Basophils % 0.8 % (0.0-0.8); Eosinophils # 0.3 10*3/uL (0.0-0.87); Eosinophils % 2.5 % (0.00-10.9); Hematocrit 42.1 VOL% (35.7-47.0); Hemoglobin 14.1 GM/DL (12.0-16.0); Immature Granulocytes Absolute 0.23 #; Lymphocytes # 2.8 10*3/uL (1.4-4.0); Lymphocytes % 24.7 % (21.3-54.2); Mean Corpuscular HGB Conc 33.5 GM/DL (32-36); Mean Corpuscular Hemoglobin 30 PG (27-34); Mean Corpuscular Volume 90.3 FL (87-102); Mean Platelet Volume 10.9 FL (9.6-12.0); Platelet Count 217 T/CUMM (130-400); Red Blood Count 4.66 MC/CUMM (3.8-5.5); Red Cell Distribution Width 13.9 % (9.3-17.3); White Blood Count 11.5 T/CUMM (4-12)
[2017-08-12 05:52] LABS: Calcium 10.3 MG/DL (8.5-10.1); Magnesium 1.9 MG/DL (1.8-2.4); Osmolality,Calculated 280.7 MOS/KG (273-304); Potassium 4.2 MMOL/L (3.5-5.1)
[2017-08-12] MEDS: LEVOTHYROXINE 137 MCG TABLET PO SCH (06:34)
[2017-08-12 07:06] LABS: Apearance,Urine CLEAR (Clear); Bilirubin,Urine Negative (Negative); Blood, Urine Negative (Negative); Glucose,Urine (UA) Negative (Negative); Hyaline Casts,Urine 1 /LPF (0-3); Ketones,Urine Negative (Negative); Mucus,Urine Occasional /LPF (Occasional); Nitrite,Urine Negative (Negative); Protein,Urine Negative; RBC,Urine 2 /HPF (0-4); Squamous Epithelial Cell,Urine Occasional /HPF (0-10); Urine Color Yellow (Yellow); Urine Urobilinogen < 2.0 EU/DL (0.2-1.0); WBC,Urine 15 /HPF (0-6)
[2017-08-12] MEDS: amLODIPine 5 MG TABLET PO SCH (09:44)
[2017-08-12] MEDS: CHLORTHALIDONE 25 MG TABLET PO SCH (09:44)
[2017-08-12] MEDS: busPIRone 15 MG TABLET PO SCH ×2 (09:45→20:16)
[2017-08-12] MEDS: LEVOFLOXACIN 500 MG TABLET PO SCH (09:45)
[2017-08-12] MEDS: METOPROLOL TARTRATE 25 MG TABLET PO SCH ×2 (09:45→20:15)
[2017-08-12] MEDS ORDERED: MAGNESIUM HYDROXIDE SUSP 30 ML UDCUP PO ONE (12:52)
--- NOTE | 2017-08-12 13:44 | Hospitalist Progress Note ---
Assessment and Plan (1) Complete AV block Status: Resolved Assessment and plan: Status post pacemaker placement Current Visit: Yes (2) Thyroid disorder Status: Chronic Current Visit: Yes (3) UTI (urinary tract infection) Status: Acute Assessment and plan: E. coli UTI sensitive to Levaquin. Continue oral therapy. Current Visit: Yes Qualifiers: Urinary tract infection type: acute cystitis (4) Hypertension Status: Chronic Current Visit: Yes Qualifiers: Hypertension type: essential hypertension Qualified Code(s): I10 - Essential (primary) hypertension Hospitalist: Subjective Interval history: Patient seen and examined. No acute events overnight. Case discussed with nursing staff. Labs reviewed. Awaiting insurance approval for swing bed Exam - Constitutional Vitals: Period Temp Pulse Resp BP Sys/Kiran Pulse Ox Last 24 Hr 96.6 F-98.4 F 68-80 18-22 154-188/66-86 95-97 Exam: Constitutional System: No distress. No tremulousness. Left arm in sling Head: Normocephalic, atraumatic. Ears, Nose and Throat System: No pain or tenderness. No epistaxis or discharge Eyes System: Pupils equal, round, and reactive. Extraocular muscles intact. Neck: Supple, without adenopathy, No jugular venous distention. No thyromegaly, neck mass, or prior surgery apparent. Respiratory System: Chest clear to auscultation. Cardiovascular System: Heart with regular rate and rhythm. No murmur. GI System: Abdomen soft, nontender. Normo active bowel sounds present. Musculoskeletal System: limbs with no pedal edema. Full distal pulses. Normal capillary refill. Neurological System: No discernable sensory deficit. No aphasia Psychiatric System: Conversation is rational Results - Labs CBC & BMP: 08/12/17 04:03 08/12/17 04:03 Lab Results: I have reviewed the past 24 hour labs Quality Measures - VTE Contraindication to Pharmacological VTE Prophylaxis: High Risk of Bleeding Specialty Discharge - Follow Up or Referrals Follow up with: Cindy Rodríguez DO [Physician] - 1 Week (Follow up with Dr. Rodríguez with EKG, wound check, pacemaker check.)
--- NOTE | 2017-08-12 20:07 | Cardiology Progress Note ---
Albaro Pope Vanessa, RN, am scribing for, and in the presence of, Edy Cornell MD 20:07. Assessment and Plan - Time spent with patient Time spent with patient: Greater than 30 minutes (1) Complete AV block Status: Resolved Assessment and plan: While in ER being evaluated for recurrent syncope, winder operator captured 6- 7 second episode of symptomatic third-degree block before returning to sinus rhythm. Taken for dual chamber pacemaker implant the same afternoon, 08/08. Telemetry remains stable. Current Visit: Yes (2) Syncope and collapse Status: Resolved Assessment and plan: This appears to be resolved. She has had no further syncopal episodes since pacemaker implant. Most likely was related to high-grade AV block. Current Visit: Yes (3) Hypertension Status: Chronic Assessment and plan: Persistent hypertension today. -Increase Lopressor to 50 mg PO twice daily- -Continue Norvasc 5 daily & Chlorthalidone 25 daily today Current Visit: Yes Qualifiers: Hypertension type: essential hypertension Qualified Code(s): I10 - Essential (primary) hypertension (4) UTI (urinary tract infection) Status: Acute Assessment and plan: Urine culture positive for E. coli. Patient is on appropriate IV antibiotic treatment per attending physician. Repeat urinalysis yesterday with resolution of UTI. Current Visit: Yes Qualifiers: Urinary tract infection type: acute cystitis (5) Thyroid disorder Status: Chronic Assessment and plan: Normal TSH this admit. Continue thyroid supplement. History positive for thyroid storm. Current Visit: Yes Cardiology - PN: Subj Interval history: OFFICE LEAD: DR. HUMPHRIES (newly established this admit) SUMMARY: Ms. Jason, 77 year old WF, PMHx thyroid disorder, GERD, anxiety. She is a lifetime non-smoker. [facility] episodes which have been occurring for approximately 5 weeks. Elevated d-dimer with subsequent chest CT per PE protocol negative for pulmonary embolism. CT of head benign. While being monitored in ER, patient was observed to have a 6-7 second episode of third-degree AV block before returning spontaneously to sinus rhythm. This was symptomatic and reproduced her symptoms--dizziness, lightheadedness, presyncope. She also had UTI. Due to the severity of the symptoms and clinical presentation, it was elected to take her directly to cardiac supervisor laboratory animal facility for pacemaker implantation. Dual-chamber pacemaker implant on 08/[address] Humhpries. Interrogation showed appropriate function. Patient has continued to complain of lower back pain and pain in buttocks area status post fall at home due to syncopal episode prior to presentation to ED. also reports generalized weakness. PT and OT have started working with patient. Insurance approval pending in anticipation of transfer to swing bed. 2016: Patient is pleasant today. Continues to report some generalized weakness with ambulation, but is increasing her activity with physical therapy assist. Hemodynamically stable overnight without any new changes or findings. Elevated SBP 160-190 mmHg. Regular rate and rhythm per winder operator. Not requiring pacing. Labs reviewed. Overall unremarkable. Patient verbalizes today she wishes to establish her primary cardiac care with Dr. Humphries upon discharge. We will arrange for this. No chest pain, shortness of breath, or other complaint other than weakness and occasional dizziness. Does report constipation and no bowel movement since last . No syncopal episodes though. Patient personally reviewed and examined and discussed in the presence of Cyndy Irvin RN and reviewed the case with her. This patient is doing well post pacemaker implantation. Pacemaker site looks good. She is making good progress from this standpoint. Issue is mobility and she needs swing bed evaluation and therapy. Her vital signs are stable. Exam (Progress Note) - Constitutional Vitals: Period Temp Pulse Resp BP Sys/Kiran Pulse Ox Last 24 Hr 96.6 F-98.4 F 68-80 18-22 154-188/66-86 95-97 Exam: General: Present: No Apparent Distress, Other (Morbidly obese) HEENT: Present: PERRL, Normocephaly, Mucus Membranes Moist. Absent: Pallor, Oral Lesions Neck: Present: Supple Neck, Midline Trachea, No JVD/HJR, No Bruit Cardiac: Present: Reg Rate and Rhythm, S1/S2, Systolic Murmur Lungs: Present: Normal Exam, Clear Ascult./Percussion, No Wheeze, Rales, Rhonchi. Not requiring supplemental oxygen. Chest: left chest pacemaker implant site with dry/intact dressing, minimal bruising, no hematoma Neuro: Present: Grossly Intact. Absent: Tingling, Weakness, Resting Tremor Abdomen: Present: Soft, Active Bowel Sounds, No Masses, No Pulsations/Bruits, Other (Obese). Absent: Ascites, Tender, Firm, Distended Skin: Present: Clear, Other (warm, dry, intact). Absent: Rash, Suspicious Lesions Musculoskeletal: Present: No Fluid Collection. Decreased range of motion Extremities: Present: No Clubbing, No Cyanosis, No Edema, Normal Upper Extr. Pulses (3+ bilaterally), Normal Lower Extr. Pulses (3+ bilateral), Capillary Refill (Normal). Absent: Petechiae. Other: left arm immobilized s/p pacemaker implant Result/EKG - Labs CBC & BMP: 08/12/17 04:03 08/12/17 04:03 Lab Results: I have reviewed the past 24 hour labs Labs: Laboratory Results - last 24 hr 08/11/17 08/12/17 08/12/17 04:00 04:03 04:03 WBC 11.5 RBC 4.66 Hgb 14.1 Hct 42.1 MCV 90.3 MCH 30 MCHC 33.5 RDW 13.9 Plt Count 217 MPV 10.9 Neut % (Auto) 61.0 Lymph % (Auto) 24.7 [place] % (Auto) 9.0 Eos % (Auto) 2.5 Baso % (Auto) 0.8 Neut # (Auto) 7.0 Lymph # (Auto) 2.8 [place] # (Auto) 1.0 H Eos # (Auto) 0.3 Baso # (Auto) 0.1 Immature Gran % 2.0 Nucleated RBC % 0.0 Immature Gran # 0.23 Nucleated RBCs # 0.00 Immature Plt Fraction 0.0 Sodium 138 Potassium 4.2 Chloride 102 Carbon Dioxide 28 Anion Gap 12.2 BUN 16 Creatinine 0.70 GFR Calculation 112 BUN/Creatinine Ratio 22.00 H Glucose 188 H Calculated Osmolality 280.7 Calcium 10.3 H Magnesium 1.9 Urine Color Yellow Urine Appearance Clear Urine pH 5.0 Ur Specific [place] 1.020 Urine Protein Negative Urine Glucose (UA) Negative Urine Ketones Negative Urine Blood Negative Urine Nitrate Negative Urine Bilirubin Negative Urine Urobilinogen < 2.0 H Urine Leukocytes Trace Urine RBC 2 Urine WBC 15 Ur Squamous Epith Cells Occasional Hyaline Casts 1 Urine Mucus Occasional Ur Culture Indicated? Results to follow - EKG EKG results: interpreted by me, no acute changes EKG shows: sinus rhythm Quality Measures - VTE Contraindication to Pharmacological VTE Prophylaxis: High Risk of Bleeding Specialty Discharge - Follow Up or Referrals Follow up with: Cindy Humphries DO [Physician] - 1 Week (Follow up with Dr. Humphries with EKG, wound check, pacemaker check.) I, Edy Cornell MD, personally performed the services described in this documentation, ascribed by Cyndy Irvin RN in my presence, and it is both accurate and complete .
[2017-08-12] MEDS: PANTOPRAZOLE 40 MG TABLET PO SCH (20:15)
[2017-08-12] MEDS: ZALEPLON 5 MG CAPSULE PO PRN (20:16)
[2017-08-13] MEDS: LEVOTHYROXINE 137 MCG TABLET PO SCH (06:15)
[2017-08-13] MEDS: busPIRone 15 MG TABLET PO SCH ×2 (08:35→21:23)
[2017-08-13] MEDS: amLODIPine 5 MG TABLET PO SCH (08:35)
[2017-08-13] MEDS: CHLORTHALIDONE 25 MG TABLET PO SCH (08:36)
[2017-08-13] MEDS: LEVOFLOXACIN 500 MG TABLET PO SCH (08:36)
[2017-08-13] MEDS: METOPROLOL TARTRATE 25 MG TABLET PO SCH ×2 (08:37→21:20)
[2017-08-13] MEDS ORDERED: SODIUM PHOSPHATE ENEMA 133 ML BOTTLE RECTAL PRN (10:21)
[2017-08-13] MEDS ORDERED: SODIUM PHOSPHATE ENEMA 133 ML BOTTLE RECTAL ONE (10:21)
[2017-08-13] MEDS ORDERED: LACTULOSE 20 GM/30 ML UDCUP PO ONE (10:21)
--- NOTE | 2017-08-13 12:17 | Hospitalist Progress Note ---
Assessment and Plan (1) Complete AV block Status: Resolved Assessment and plan: Status post pacemaker placement Current Visit: Yes (2) Thyroid disorder Status: Chronic Current Visit: Yes (3) UTI (urinary tract infection) Status: Acute Assessment and plan: E. coli UTI sensitive to Levaquin. Continue oral therapy. Current Visit: Yes Qualifiers: Urinary tract infection type: acute cystitis (4) Hypertension Status: Chronic Current Visit: Yes Qualifiers: Hypertension type: essential hypertension Qualified Code(s): I10 - Essential (primary) hypertension (5) Constipation Status: Acute Assessment and plan: Bowel regimen started with fleets enema and lactulose in addition to Colace and milk of mag given previously Current Visit: Yes Hospitalist: Subjective Interval history: Patient seen and examined. No acute events overnight. Case discussed with nursing staff. Labs reviewed. Patient complains of severe constipation and requests fleets enema. Lactulose and enema have been added. I just received notification that she has been approved for admission to [facility]. Will await movement of bowels prior to transfer. Exam - Constitutional Vitals: Period Temp Pulse Resp BP Sys/Kiran Pulse Ox Last 24 Hr 96.5 F-98.2 F 62-72 17-22 135-171/64-86 93-98 Exam: Constitutional System: No distress. No tremulousness. Left arm in sling Head: Normocephalic, atraumatic. Ears, Nose and Throat System: No pain or tenderness. No epistaxis or discharge Eyes System: Pupils equal, round, and reactive. Extraocular muscles intact. Neck: Supple, without adenopathy, No jugular venous distention. No thyromegaly, neck mass, or prior surgery apparent. Respiratory System: Chest clear to auscultation. Cardiovascular System: Heart with regular rate and rhythm. No murmur. GI System: Abdomen soft, nontender. Normo active bowel sounds present. Musculoskeletal System: limbs with no pedal edema. Full distal pulses. Normal capillary refill. Neurological System: No discernable sensory deficit. No aphasia Psychiatric System: Conversation is rational Results - Labs CBC & BMP: 08/12/17 04:03 08/12/17 04:03 Lab Results: I have reviewed the past 24 hour labs Quality Measures - VTE Contraindication to Pharmacological VTE Prophylaxis: High Risk of Bleeding Specialty Discharge - Follow Up or Referrals Follow up with: Cindy Rodríguez DO [Physician] - 1 Week (Follow up with Dr. Rodríguez with EKG, wound check, pacemaker check.)
--- NOTE | 2017-08-13 18:09 | Cardiology Progress Note ---
Albaro Pope Vanessa, RN, am scribing for, and in the presence of, Edy Cornell MD 18:09. Assessment and Plan - Time spent with patient Time spent with patient: Greater than 30 minutes (1) Complete AV block Status: Resolved Assessment and plan: While in ER being evaluated for recurrent syncope, monitoring analyst captured 6- 7 second episode of symptomatic third-degree block before returning to sinus rhythm. Taken for dual chamber pacemaker implant the same afternoon, 08/08. Patient remained stable today without recurrence of AV block. Continue to monitor telemetry. Current Visit: Yes (2) Hypertension Status: Chronic Assessment and plan: Blood pressure is slightly improved today after increasing metoprolol dose yesterday. However, she does have some transient elevation of BP with systolic pressure into the 160s. We will review and adjust medications today. -Lopressor 50 mg PO twice daily -Continue Norvasc 5 daily & Chlorthalidone 25 daily today Current Visit: Yes Qualifiers: Hypertension type: essential hypertension Qualified Code(s): I10 - Essential (primary) hypertension (3) UTI (urinary tract infection) Status: Acute Assessment and plan: Urine culture positive for E. coli. Repeat urinalysis yesterday with resolution of UTI. She has been transitioned to PO Levaquin. Current Visit: Yes Qualifiers: Urinary tract infection type: acute cystitis (4) Thyroid disorder Status: Chronic Assessment and plan: Normal TSH this admit. Continue thyroid supplement. History positive for thyroid storm. Current Visit: Yes Cardiology - PN: Subj Interval history: VETERINARY PRACTITIONER: DR. HUMPHRIES (newly established this admit) SUMMARY: Ms. Jason, 77 year old WF, PMHx thyroid disorder, GERD, anxiety. She is a lifetime non-smoker. Admitted to [facility] telemetry on 08/08 for evaluation of recurrent syncopal episodes which have been occurring for approximately 5 weeks. Elevated d-dimer with subsequent chest CT per PE protocol negative for pulmonary embolism. CT of head benign. While being monitored in ER, patient was observed to have a 6-7 second episode of third-degree AV block before returning spontaneously to sinus rhythm. This was symptomatic and reproduced her symptoms--dizziness, lightheadedness, presyncope. She also had UTI. Due to the severity of the symptoms and clinical presentation, it was elected to take her directly to [facility] for pacemaker implantation. Dual-chamber pacemaker implant on 08/[address] Humphries. Interrogation showed appropriate function. Patient has continued to complain of lower back pain and pain in buttocks area status post fall at home due to syncopal episode prior to presentation to ED. also reports generalized weakness. PT and OT have started working with patient. Insurance approval pending in anticipation of transfer to swing bed. 2016: Patient is seen again today on telemetry unit. She is awake, alert, and pleasant. Patient is being treated with physical therapy and occupational therapy. Patient is not experiencing any discomfort of pacemaker implant site of left chest. Not having any chest pain, shortness of breath, palpitations, dizziness, or other area complaint. Yesterday, milk of magnesia dose was provided for patient's complaint of not having a bowel movement since last . Has not yet had a bowel movement. Will be receiving a fleets enema today. Swing bed placement has been approved by insurance today, and she will be discharged to that facility later today pending bowel movement. Blood pressure is some improved today increasing metoprolol dose yesterday. SBP 130- 160 mmHg range. Sinus rhythm with occasional pacing per monitoring analyst. After patient continues to be monitored for hypertension, AV block, and syncopal episodes which are all stable at this time. ROS: -Denies chest pain -Denies dyspnea -Denies dizziness, lightheadedness, presyncope, or syncope Patient personally interviewed and examined chart reviewed with him in the presence of Cyndy Irvin RN and we reviewed the case. I agree with this note is scribed. Patient is generally stable from the pacemaker. Complains of her to go to swing bed but apparently she has not had a bowel movement last several days and this is in the process of being remediated. Cardiac standpoint though she is done well not having any issues. Her blood pressures improved some but still is up and down some. Hopefully she will reach criteria tomorrow with her bowel movements to be able to go to swing bed. Exam (Progress Note) - Constitutional Vitals: Period Temp Pulse Resp BP Sys/Kiran Pulse Ox Last 24 Hr 96.5 F-98.2 F 62-72 17-22 135-171/64-86 93-98 Exam: General: Present: No Apparent Distress, Other (Morbidly obese) HEENT: Present: PERRL, Normocephaly, Mucus Membranes Moist. Absent: Pallor, Oral Lesions Neck: Present: Supple Neck, Midline Trachea, No JVD/HJR, No Bruit Cardiac: Present: Reg Rate and Rhythm, S1/S2, Systolic Murmur Lungs: Present: Normal Exam, Clear Ascult./Percussion, No Wheeze, Rales, Rhonchi. Not requiring supplemental oxygen. Chest: left chest pacemaker implant site with dry/intact dressing, minimal bruising, no hematoma. Site continues to heal well. Neuro: Present: Grossly Intact. Absent: Tingling, Weakness, Resting Tremor Abdomen: Present: Soft, Active Bowel Sounds, No Masses, No Pulsations/Bruits, Other (Obese). Absent: Ascites, Tender, Firm, Distended Skin: Present: Clear, Other (warm, dry, intact). Absent: Rash, Suspicious Lesions Musculoskeletal: Present: No Fluid Collection. Decreased range of motion Extremities: Present: No Clubbing, No Cyanosis, No Edema, Normal Upper Extr. Pulses (3+ bilaterally), Normal Lower Extr. Pulses (3+ bilateral), Capillary Refill (Normal). Absent: Petechiae. Other: left arm immobilized s/p pacemaker implant Result/EKG - Labs CBC & BMP: 08/12/17 04:03 08/12/17 04:03 Lab Results: I have reviewed the past 24 hour labs - EKG EKG results: interpreted by me, no acute changes EKG shows: sinus rhythm Quality Measures - VTE Contraindication to Pharmacological VTE Prophylaxis: High Risk of Bleeding Specialty Discharge - Follow Up or Referrals Follow up with: Cindy Humphries DO [Physician] - 1 Week (Follow up with Dr. Humphries with EKG, wound check, pacemaker check.) I, Edy Cornell MD, personally performed the services described in this documentation, ascribed by Cyndy Irvin RN in my presence, and it is both accurate and complete [id number] .
[2017-08-13] MEDS: DOCUSATE SODIUM 100 MG CAPSULE PO PRN (21:20)
[2017-08-13] MEDS: PANTOPRAZOLE 40 MG TABLET PO SCH (21:20)
[2017-08-13] MEDS: LACTULOSE 20 GM/30 ML UDCUP PO PRN (21:21)
[2017-08-14] MEDS: LACTULOSE 20 GM/30 ML UDCUP PO PRN ×2 (01:43→11:40)
[2017-08-14] MEDS: LEVOTHYROXINE 137 MCG TABLET PO SCH (06:23)
[2017-08-14] MEDS: ACETAMINOPHEN 325 MG TABLET PO PRN (06:31)
[2017-08-14] MEDS ORDERED: MAGNESIUM CITRATE 300 ML BOTTLE PO ONE (09:15)
[2017-08-14] MEDS ORDERED: SODIUM PHOSPHATE ENEMA 133 ML BOTTLE RECTAL ONE (09:16)
[2017-08-14] MEDS: METOPROLOL TARTRATE 25 MG TABLET PO SCH (09:41)
[2017-08-14] MEDS: busPIRone 15 MG TABLET PO SCH (09:41)
[2017-08-14] MEDS: LEVOFLOXACIN 500 MG TABLET PO SCH (09:41)
[2017-08-14] MEDS: CHLORTHALIDONE 25 MG TABLET PO SCH (09:41)
[2017-08-14] MEDS: amLODIPine 5 MG TABLET PO SCH (09:41)
--- NOTE | 2017-08-14 12:14 | Discharge Summary ---
Hospital Course - Hospital Course Hospital Course: Ms. Jason, 77 year old WF, PMHx thyroid disorder, GERD, anxiety. She is a lifetime non-smoker. Admitted to [facility] telemetry on 08/08 for evaluation of recurrent syncopal episodes which have been occurring for approximately 5 weeks. Elevated d-dimer with subsequent chest CT per PE protocol negative for pulmonary embolism. CT of head benign. While being monitored in ER, patient was observed to have a 6-7 second episode of third-degree AV block before returning spontaneously to sinus rhythm. This was symptomatic and reproduced her symptoms--dizziness, lightheadedness, presyncope. She also had UTI. Due to the severity of the symptoms and clinical presentation, it was elected to take her directly to [facility] for pacemaker implantation. Dual-chamber pacemaker implant on 08/[address] Rodríguez. Interrogation showed appropriate function. Patient has continued to complain of lower back pain and pain in buttocks area status post fall at home due to syncopal episode prior to presentation to ED. also reports generalized weakness. PT and OT have started working with patient. Insurance approval pending in anticipation of transfer to swing bed. 2016: Patient is seen again today on telemetry unit. She is awake, alert, and pleasant. Patient is being treated with physical therapy and occupational therapy. Patient is not experiencing any discomfort of pacemaker implant site of left chest. Not having any chest pain, shortness of breath, palpitations, dizziness, or other area complaint. Yesterday, milk of magnesia dose was provided for patient's complaint of not having a bowel movement since last . Has not yet had a bowel movement. Will be receiving a fleets enema today. Swing bed placement has been approved by insurance today, and she will be discharged to that facility later today pending bowel movement. Blood pressure is some improved today increasing metoprolol dose yesterday. SBP 130- 160 mmHg range. Sinus rhythm with occasional pacing per monitor tech. After patient continues to be monitored for hypertension, AV block, and syncopal episodes which are all stable at this time. Depositing Machine Operator Dr. Burgess Patient is being discharged to swing bed today. Her discharge was held up due to lack of bowel movements and constipation. This morning she has been able to defecate with the help of lactulose and magnesium citrate. She feels otherwise well and is ready for discharge. Home medications were reviewed and reconciled. Urine cultures revealed E. coli which was sensitive to Levaquin. Patient has completed a course of treatment. - Time spent with patient Time with patient DS: Greater than 30 minutes (Total discharge time for this patient, including [place]pp-[place]-piak time, clinical documentation, medication reconciliation, and discharge planning was 35 minutes.) Diagnosis - Discharge Diagnosis (1) Complete AV block Status: Resolved (2) Thyroid disorder Status: Chronic (3) UTI (urinary tract infection) Status: Resolved (4) Hypertension Status: Chronic (5) Constipation Status: Acute Specialty Discharge - Follow Up or Referrals Follow up with: Cindy Rodríguez DO [Physician] - 08/21/17 2:40 pm (Follow up with Dr. Rodríguez with EKG, wound check, pacemaker check.) Discharge Plan - Discharge Data Disposition: Disch/Xfer-Ip Rehab Fac Condition at Discharge: Stable Discharge Diet: advance to your usual diet Activity: resume usual activities as tolerated, as per physical therapy Hygiene: no restrictions Weight Bearing at Discharge: full weight bearing Contact your physician if you experience:: fever over 101, Shortness of breath, pain uncontrolled by pain medications - Discharge Medications New Acetaminophen Tab [Tylenol Tab] 325 mg PO Q4H PRN tablet PRN Reason: fever, headache/body aches amLODIPine [Norvasc] 5 mg PO DAILY tablet Chlorthalidone [Hygroton] 25 mg PO DAILY tablet HYDROcodone/ACETAMIN 5-325 [Heyburn 5-325] 1 tablet PO Q4H PRN tablet PRN Reason: Pain Mild (1-3) Lactulose Liquid [Chronulac] 20 gm PO Q4H PRN PRN Reason: Constipation Metoprolol Tartrate Tab [Lopressor Tab] 50 mg PO BID tablet Docusate Sodium Cap [Colace Cap] 100 mg PO BID PRN capsule PRN Reason: Constipation Continue Pantoprazole Tab [Protonix Tab] 40 mg PO BEDTIME Levothyroxine Tab [Synthroid Tab] 137 mcg PO DAILY@0700 Buspirone HCl 15 mg PO BID PRN PRN Reason: Anxiety - Follow Up or Referral Follow Up: Cindy Rodríguez DO [Physician] - 08/21/17 2:40 pm (Follow up with Dr. Rodríguez with EKG, wound check, pacemaker check.) - Forms/Instructions Exam - Constitutional Vitals: Period Temp Pulse Resp BP Sys/Kiran Pulse Ox Last 24 Hr 96.5 F-98 F 64-72 18-20 157-182/72-74 95-97 DS: Provider Date of admission: 08/08/17 13:09 Primary care physician: Tiffany Oswald Attending physician on admission: Grant Hammond MD Consults: 08/08/17 13:46 Consult to Physician [CONS] Routine Comment: Presyncopal episodes-scheduled office visit Consulting Provider: Bartolome Ramon When should Consulting Provider be notified: Now 08/09/17 11:26 Consult to Occupational Therapy [CONS] Routine Reason for Occupational Therapy: Evaluate and Treat Consult to Physical Therapy [CONS] Routine Reason for Physical Therapy: Evaluate and Treat 08/10/17 10:50 Consult to Case Mgmt/Social Srvs [CONS] Routine Reason for Case Mgmt/Social Srvs: Discharge Planning Swingbed/SNF/[facility] Discharging clinician: Elif Marcos MD Expected date of discharge: 08/14/17
[2017-08-14 12:54] VITALS: BP 145/76
[2017-08-14] MEDS: ONDANSETRON 4 MG/2 ML VIAL IV PRN (14:10)
== END 2017-08-14 14:36 | disposition swing bed (61) | DRG 243 ==
LOC: EDUNIT# → EDBD → N.ED 09:42 → N.EDINP 13:09 → SUATTDRO 13:09 → N.ICU 14:35 → N.TELEN 17:13
PROVIDERS: ADMIT Internal Medicine Cardiovascular Disease; ATTEND Family Medicine